=== PATIENT | female | born 1935 | race Caucasian/White ===

== ENCOUNTER 2018-10-30 13:15 | Inpatient (IN) | payer MEDICARE ==
[~2018-10-30] VITALS: Ht 152.4 cm; Wt 62.2 kg
[2018-10-30] MEDS ORDERED: SODIUM CHLORIDE FLUSH 10ML SYR IVF ONE (13:30)
--- NOTE | 2018-10-30 13:55 | NUR ---
THIS IS A 83 FEMALE THAT ARRIVES TO ED WITH C/O SOB AND INCREASED FATIFGUE WITH A COUGH. PT IS CURRENTLY ON VACATION. PT ON ARRIVALE APPEARS TO BE IN ATRIAL FIBRAILATION AND IS SLIGHTLY HYPOXIC AT THIS TIME. PT PLACED ON ALL MONITORING EQUIPMENT AND PLACED ON 02. PT REPROTS NO CARDIAC HX AT THIS TIME. IS ON A BABY ASA AT HOME. FAMILY AT BEDSIDE AND SERVING HISTORIAN. MD TO BEDSIDE, PIV PLACED AND LABS TUBED TO LABRATORY.
--- NOTE | 2018-10-30 13:57 | NUR ---
AWAITING FURTHER ORDERS CALL LIGHT IN REACH.
[2018-10-30 14:00] LABS: BASOPHILS # (AUTO) 0.04 x10^3/uL (0-0.1); BASOPHILS % (AUTO) 0 % (0-1); EOSINOPHILS # (AUTO) 0.11 x10^3/uL (0-0.4); EOSINOPHILS % (AUTO) 1 % (1-7); LYMPHOCYTES % (AUTO) 25 % (22-44); MD NO; MEAN CORPUSCULAR HEMOGLOBIN 30.1 pg (27.0-34.8); MEAN CORPUSCULAR HGB CONC 32.3 g/dL (32.4-35.8); MEAN CORPUSCULAR VOLUME 93.1 fL (80-100); MEAN PLATELET VOLUME 8.4 fL (7.4-10.4); MONOCYTES # (AUTO) 0.77 x10^3/uL (0.2-0.8); MONOCYTES % (AUTO) 9 % (2-9); NEUTROPHILS # (AUTO) 5.25 x10^3/uL (1.8-6.8); NEUTROPHILS % (AUTO) 64 % (42-75); PLATELET COUNT 207 x10^3/uL (130-400); RED BLOOD COUNT 3.73 x10^6/uL (3.82-5.3); RED CELL DISTRIBUTION WIDTH 15.3 % (9.6-15.2)
[2018-10-30] MEDS ORDERED: METF500T17 PO (14:07)
[2018-10-30] MEDS ORDERED: KETO5DRO70 OP (14:07)
[2018-10-30] MEDS ORDERED: FEXO180T15 PO (14:07)
[2018-10-30] MEDS ORDERED: RANI150T4 PO (14:07)
[2018-10-30] MEDS ORDERED: GABA300C10 PO (14:07)
[2018-10-30] MEDS ORDERED: SIMV10TA3 PO (14:07)
[2018-10-30] MEDS ORDERED: LISI-167 PO (14:07)
[2018-10-30] MEDS ORDERED: ASPI-496 PO (14:08)
[2018-10-30 14:10] LABS: ALANINE AMINOTRANSFERASE 80 U/L (12-78); ALBUMIN 3.5 g/dL (3.4-5.0); ANION GAP 8 mmol/L (5-15); CALCIUM 8.9 mg/dL (8.5-10.1); CHLORIDE 97 mmol/L (98-107); CREATININE 0.93 mg/dL (0.55-1.02)
[2018-10-30 14:15] LABS: ALKALINE PHOSPHATASE 95 U/L (45-117); BILIRUBIN,TOTAL 0.8 mg/dL (0.2-1.0); TOTAL PROTEIN 7.3 g/dL (6.4-8.2); TROPONIN I < 0.015 ng/mL (0.000-0.045)
[2018-10-30 14:26] LABS: FREE T4 (FREE THYROXINE) 1.14 ng/dL (0.76-1.46)
[2018-10-30] MEDS ORDERED: SODIUM CHLORIDE 0.9% 1,000ML IVBOLUS ONE (14:30)
--- NOTE | 2018-10-30 15:21 | NUR ---
PT SITTING UP IN BED, RESPIRATIONS EVEN AND UNLABORED ON NC. AWAITING RECHECK. VSS. RAILS UP, CALL LIGHT IN REACH. PT COUGHS OCCASIONALLY. NAD NOTED AT THIS TIME.
[2018-10-30] MEDS ORDERED: CEFTRIAXONE PMX 1GM/50ML 50 ML ONE (15:59)
[2018-10-30] MEDS ORDERED: CEFTRIAXONE PMX 1GM/50ML 50 ML IVPB ONE (16:00)
[2018-10-30] MEDS ORDERED: DEXTROSE 4 GM TAB.CHEW PO PRN (16:30)
[2018-10-30] MEDS ORDERED: DEXTROSE 50%, 50ML SYRINGE IVPush PRN (16:30)
[2018-10-30] MEDS ORDERED: SODIUM CHLORIDE FLUSH 10ML SYR IVF PRN (16:30)
[2018-10-30] MEDS ORDERED: hydrALAzine 20 MG/ML, 1ML IVPush PRN (16:30)
[2018-10-30] MEDS ORDERED: ONDANSETRON 2MG/ML, 2ML IVPush PRN (16:30)
[2018-10-30] MEDS ORDERED: OXYcodone IR 5MG TABLET PO PRN (16:30)
[2018-10-30] MEDS ORDERED: ACETAMINOPHEN 325 MG TABLET PO PRN (16:30)
[2018-10-30] MEDS ORDERED: GLUCAGON 1 MG IM PRN (16:30)
[2018-10-30] MEDS ORDERED: RIVAROXABAN 20 MG TABLET PO SCH (17:00)
[2018-10-30 17:38] VITALS: BP 132/76
[2018-10-30] MEDS: FUROSEMIDE 20 MG/2 ML IV SCH (18:08)
[2018-10-30] MEDS: METOPROLOL TARTRATE 25 MG TABLET PO SCH (18:08)
[2018-10-30 19:30] VITALS: BP 123/76
[2018-10-30] MEDS ORDERED: SIMVASTATIN 5 MG TABLET ONE (20:45)
[2018-10-30] MEDS: GABAPENTIN 300 MG CAPSULE PO SCH (20:51)
[2018-10-30] MEDS: SIMVASTATIN 10 MG TABLET PO SCH (20:52)
[2018-10-30] MEDS: TEMPLATE NON-FORMULARY MED. (Ranitidine Hcl** 150 MG) PO SCH (20:56)
[2018-10-30] MEDS: INSULIN LISPRO 100 UNITS/ML, PEN SQ-INSULIN SCH (21:33)
[2018-10-30] MEDS: SODIUM CHLORIDE FLUSH 10ML SYR IVF SCH (21:34)
[2018-10-30] MEDS: MELATONIN 3 MG TABLET PO PRN (22:26)
[2018-10-30] MEDS ORDERED: CALCIUM CARBONATE 500 MG TAB.CHEW PO PRN (22:30)
[2018-10-31 03:02] VITALS: BP 106/70
[2018-10-31 03:11] VITALS: BP 120/80
[2018-10-31 05:07] VITALS: BP 106/75
[2018-10-31] MEDS: METOPROLOL TARTRATE 25 MG TABLET PO SCH ×2 (05:16→17:35)
[2018-10-31 05:28] LABS: BASOPHILS # (AUTO) 0.03 x10^3/uL (0-0.1); BASOPHILS % (AUTO) 1 % (0-1); EOSINOPHILS # (AUTO) 0.05 x10^3/uL (0-0.4); EOSINOPHILS % (AUTO) 1 % (1-7); LYMPHOCYTES # (AUTO) 1.94 x10^3/uL (1-3.4); LYMPHOCYTES % (AUTO) 26 % (22-44); MD NO; MEAN CORPUSCULAR HEMOGLOBIN 30.3 pg (27.0-34.8); MEAN CORPUSCULAR HGB CONC 32.3 g/dL (32.4-35.8); MEAN CORPUSCULAR VOLUME 93.8 fL (80-100); MEAN PLATELET VOLUME 8.7 fL (7.4-10.4); MONOCYTES # (AUTO) 0.69 x10^3/uL (0.2-0.8); MONOCYTES % (AUTO) 9 % (2-9); NEUTROPHILS # (AUTO) 4.88 x10^3/uL (1.8-6.8); NEUTROPHILS % (AUTO) 64 % (42-75); PLATELET COUNT 204 x10^3/uL (130-400); RED BLOOD COUNT 3.51 x10^6/uL (3.82-5.3); RED CELL DISTRIBUTION WIDTH 15.6 % (9.6-15.2)
[2018-10-31 05:36] LABS: ALANINE AMINOTRANSFERASE 97 U/L (12-78); ALBUMIN 3.5 g/dL (3.4-5.0); ANION GAP 8 mmol/L (5-15); CALCIUM 8.9 mg/dL (8.5-10.1); CHLORIDE 99 mmol/L (98-107)
[2018-10-31 05:40] LABS: % IRON SATURATION 11 % (20-55); ALKALINE PHOSPHATASE 127 U/L (45-117); BILIRUBIN,TOTAL 0.5 mg/dL (0.2-1.0); CREATININE 1.02 mg/dL (0.55-1.02); IRON LEVEL 36 mcg/dL (50-170); TOTAL IRON BINDING CAPACITY 342 mcg/dL (250-450); TOTAL PROTEIN 6.9 g/dL (6.4-8.2)
[2018-10-31 06:23] VITALS: BP 104/68
[2018-10-31] MEDS: INSULIN LISPRO 100 UNITS/ML, PEN SQ-INSULIN SCH ×4 (07:00→22:07)
[2018-10-31] MEDS: SODIUM CHLORIDE FLUSH 10ML SYR IVF SCH ×2 (08:08→21:56)
[2018-10-31] MEDS: FUROSEMIDE 20 MG/2 ML IV SCH ×2 (08:08→17:35)
[2018-10-31] MEDS: TEMPLATE NON-FORMULARY MED. (Fexofenadine Hcl** 180 MG) PO SCH (08:09)
[2018-10-31] MEDS: TEMPLATE NON-FORMULARY MED. (Ranitidine Hcl** 150 MG) PO SCH ×2 (08:09→21:00)
[2018-10-31 13:14] VITALS: BP 104/71
[2018-10-31] MEDS ORDERED: RIVAROXABAN 20 MG TABLET PO SCH (15:05)
[2018-10-31] MEDS ORDERED: RIVAROXABAN 15 MG TABLET PO SCH (17:22)
[2018-10-31 18:52] VITALS: BP 106/73
[2018-10-31 19:03] LABS: OCCULT BLOOD NEGATIVE (NEGATIVE)
[2018-10-31] MEDS: GABAPENTIN 300 MG CAPSULE PO SCH (21:55)
[2018-10-31] MEDS: SIMVASTATIN 10 MG TABLET PO SCH (21:55)
[2018-11-01] MEDS: FAMOTIDINE 20 MG TABLET PO SCH ×2 (00:05→08:51)
[2018-11-01] MEDS: MELATONIN 3 MG TABLET PO PRN (00:05)
[2018-11-01 01:13] VITALS: BP 112/77
[2018-11-01 04:46] LABS: BASOPHILS # (AUTO) 0.03 x10^3/uL (0-0.1); BASOPHILS % (AUTO) 0 % (0-1); EOSINOPHILS # (AUTO) 0.13 x10^3/uL (0-0.4); EOSINOPHILS % (AUTO) 2 % (1-7); LYMPHOCYTES # (AUTO) 1.97 x10^3/uL (1-3.4); LYMPHOCYTES % (AUTO) 28 % (22-44); MD NO; MEAN CORPUSCULAR HGB CONC 32.7 g/dL (32.4-35.8); MEAN CORPUSCULAR VOLUME 94.8 fL (80-100); MEAN PLATELET VOLUME 8.8 fL (7.4-10.4); MONOCYTES # (AUTO) 0.73 x10^3/uL (0.2-0.8); MONOCYTES % (AUTO) 10 % (2-9); NEUTROPHILS # (AUTO) 4.16 x10^3/uL (1.8-6.8); NEUTROPHILS % (AUTO) 59 % (42-75); PLATELET COUNT 214 x10^3/uL (130-400); RED BLOOD COUNT 3.53 x10^6/uL (3.82-5.3); RED CELL DISTRIBUTION WIDTH 15.6 % (9.6-15.2)
[2018-11-01 04:54] LABS: ANION GAP 10 mmol/L (5-15); CALCIUM 8.7 mg/dL (8.5-10.1); CHLORIDE 95 mmol/L (98-107); CREATININE 0.92 mg/dL (0.55-1.02)
[2018-11-01] MEDS: METOPROLOL TARTRATE 25 MG TABLET PO SCH (05:28)
[2018-11-01 07:58] VITALS: BP 96/67
[2018-11-01] MEDS: INSULIN LISPRO 100 UNITS/ML, PEN SQ-INSULIN SCH ×3 (08:30→16:43)
[2018-11-01] MEDS: TEMPLATE NON-FORMULARY MED. (Fexofenadine Hcl** 180 MG) PO SCH (08:51)
[2018-11-01] MEDS: SODIUM CHLORIDE FLUSH 10ML SYR IVF SCH (08:51)
[2018-11-01] MEDS: FUROSEMIDE 20 MG/2 ML IV SCH (08:51)
[2018-11-01 14:33] VITALS: BP 97/66
[2018-11-01] MEDS ORDERED: METO25TA35 PO (15:26)
[2018-11-01] MEDS ORDERED: RIVA15TA PO (15:26)
[2018-11-01] MEDS ORDERED: FURO20TA3 PO (15:26)
[2018-11-01] MEDS ORDERED: POTA10TA31 PO (15:32)
== END 2018-11-01 17:25 | disposition home or self-care (01) | DRG 291 ==
LOC: ED 16:05 → EDIP 16:06 → ED 16:50 → 5SO 17:30 → DCLOUNGE 11-01 17:01
PROVIDERS: ADMIT Internal Medicine; ATTEND Internal Medicine
DX: I11.0 Hypertensive heart disease with heart failure (principal); J96.01 Acute respiratory failure with hypoxia; I50.31 Acute diastolic (congestive) heart failure; D68.69 Other thrombophilia; E87.1 Hypo-osmolality and hyponatremia; I48.91 Unspecified atrial fibrillation; D64.9 Anemia, unspecified; E07.81 Sick-euthyroid syndrome; K21.9 Gastro-esophageal reflux disease without esophagitis; E11.9 Type 2 diabetes mellitus without complications; E78.00 Pure hypercholesterolemia, unspecified; E78.5 Hyperlipidemia, unspecified; I08.1 Rheumatic disorders of both mitral and tricuspid valves; Z79.82 Long term (current) use of aspirin; Z79.01 Long term (current) use of anticoagulants; Z79.84 Long term (current) use of oral hypoglycemic drugs; Z79.899 Other long term (current) drug therapy; Z80.9 Family history of malignant neoplasm, unspecified; Z82.3 Family history of stroke; Z85.51 Personal history of malignant neoplasm of bladder
CPT/HCPCS: 36415; 71045; 71046; 71250; 80048; 80053; 82272; 82533; 82962; 83540; 83550; 83690; 83735; 83880; 84145; 84439; 84443; 84484; 85025; 87070; 87205; 93005; 93306; G0378; J0696; J1815; J1940; J7030